=== PATIENT | female | born 1960 | race Hispanic/Latino ===

== ENCOUNTER 2022-12-17 12:39 | Emergency (ER) | payer OTHER, SELFPAY ==
--- NOTE | ~2022-12-17 | CT_ITS ---
EXAMINATION: CT abdomen pelvis w con DATE: 12/17/2022 14:08 INDICATION: Right-sided abdominal pain. No bowel movement for 3 days TECHNIQUE: Computed tomography (CT) of the abdomen and pelvis was performed with 100 CC Omnipaque 350 intravenous contrast. Automated exposure control and iterative reconstruction technique were employe d. Exam dose: 236.39 mGy-cm total exam DLP. COMPARISON: None. FINDINGS: The lung bases are clear. Heart size is normal. No pericardial or pleural effusion. The gallbladder is present. No gallbladder wall thickening or pericholecystic fluid or fat stranding. No bile duct or pancreatic duct dilatation is noted. There is an approximately 5 mm cystic lesion of the pancreatic body (image 66 series 3). Differential diagnosis includes small pseudocyst, intraductal papillary mucinous neoplasm, mucinous cystic neopla sm, serous cystadenoma, neuroendocrine tumor. 6 month follow-up CT pancreas imaging is recommended. No hepatic, splenic, and adrenal or renal space-occupying mass lesion is detected. No urinary tract c alculus or hydroureteronephrosis. The urinary bladder, uterus and adnexal areas are unremarkable. There is a prominent amount of fecal material in the rectum and colon. Normal appendix. No bowel obst ruction, bowel wall thickening, pneumatosis or intraperitoneal free air is detected. There is mild atherosclerotic calcification of the abdominal aorta, no abdominal aortic aneurysm. No intraperitoneal or retroperitoneal or pelvic mass lesion or adenopathy or ascites is noted. Diffuse idiopathic skeletal hyperostosis of the thoracic spine. Multilevel degenerative disc disease of the lumbar spine, most severe at L4-5, moderately severe at L 2-3 and L5-S1. IMPRESSIONS: 5 mm cystic lesion of the pancreatic body; differential diagnosis is given above. 6 month follow up C T pancreas imaging is recommended. Prominent amount of fecal material the rectum and colon consistent with clinical presentation of cons tipation; no bowel obstruction or free air Normal appendix Reviewed, dictated and finalized at location [facility]. IMPRESSIONS: 5 mm cystic lesion of the pancreatic body; differential diagnosis is given abov e. [address] pancreas imaging is recommended. Prominent amount of fecal material the rectum and colon consistent with clinica l presentation of constipation; no bowel obstruction or free air Normal appendix
[2022-12-17 12:40] VITALS: BP 118/72; PULSE 90; RESP 17; TEMP 36.6; O2SAT 100
[2022-12-17 13:58] LABS: Basophils Percent Auto 0.4 % (0.2-1.2); Eosinophils Absolute Auto 0.1 K/mm3 (0-0.3); Eosinophils Percent Auto 0.8 % (0-4.4); Hematocrit 39.8 % (37.0-47.0); Hemoglobin 13.2 g/dL (12.0-15.0); Immature Granulocyte Absolute 0.02 K/mm3 (0.00-0.031); Immature Granulocyte Percent A 0.3 % (0-0.5); Lymphocytes Absolute Auto 2.15 K/mm3 (0.9-3.2); Lymphocytes Percent Auto 27.1 % (18.3-44.2); Mean Corpuscular HGB Conc 33.2 g/dl (32-36); Mean Corpuscular Hemoglobin 31.1 pg (26-34); Mean Corpuscular Volume 93.6 fl (80-100); Mean Platelet Volume 11.5 fl (7.4-10.4); Monocytes Absolute Auto 0.4 K/mm3 (0.1-0.6); Monocytes Percent Auto 4.7 % (2.6-8.5); Neutrophils Absolute Auto 5.3 K/mm3 (1.3-6.7); Neutrophils Percent Auto 66.7 % (45.5-73.1); Platelet Count Result 252 k/mm3 (150-375); Red Blood Count 4.25 M/mm3 (4.2-5.4); Red Cell Distribution Width 12.7 % (11.5-14.5); White Blood Count 7.9 K/mm3 (4.5-10.0)
[2022-12-17 14:03] LABS: Estimated CRCL calculation 88 ml/min; Estimated Glomerular Filt Rate > 60
[2022-12-17 14:11] LABS: Alanine Aminotransferase 17 U/L (6-35); Albumin Level 4.2 g/dL (3.5-5.1); Alkaline Phosphatase 74 U/L (38-126); Anion Gap 5 mmol/L (8-16); Aspartate Amino Transferase 24 U/L (14-36); Bilirubin,Total 0.6 mg/dL (0.2-1.3); Blood Urea Nitrogen 14 mg/dL (7-17); Calcium 9.2 mg/dL (8.4-10.2); Carbon Dioxide 34 mmol/L (22-30); Chloride 102 mmol/L (98-107); Estimated CRCL calculation 88 ml/min; Estimated Glomerular Filt Rate > 60; Glucose 170 mg/dL (65-110); Lactic Acid Reflex 0.8 mmol/L (0.7-2.0); Lipase 63 U/L (23-300); Potassium 3.4 mmol/L (3.4-5.0); Sodium 141 mmol/L (137-145)
--- NOTE | 2022-12-17 14:32 | ED.ABDPAIN ---
HPI - Abdominal Pain General Chief Complaint: Abdominal Pain Stated Complaint: abd pain Time Seen by Provider: 12/17/22 12:45 History of Present Illness HPI narrative: 62-year-old female presented to the emergency department for evaluation of decreased bowel movements over the last 3 days and increased abdominal discomfort. Patient reports that she does have a history of abdominal pain and constipation. Related Data Allergies Allergy/AdvReac Type Severity Reaction Status Date / Time No Known Allergies Allergy Unverified 04/22/13 11:17 Review of Systems Review of Systems: All systems reviewed & are unremarkable except as noted in HPI and below Exam Narrative: APPEARANCE: Well appearing, no pain, no distress, well-nourished. HEAD: normocephalic, atraumatic. EYES: PERRLA/EOMI, conjunctivae clear. NOSE: Normal no drainage NECK: Supple. No adenopathy, no masses. RESPIRATORY: Airway patent, respirations nonlabored. Clear to auscultation bilaterally, no rales, rhonchi, wheezing. CARDIOVASCULAR: Regular rate and rhythm without murmurs rubs or gallops. ABDOMINAL: Soft, mild lower abdominal tenderness MUSCULOSKELETAL: Moves all extremities. Strength/ROM intact, No edema, No calf tenderness. NEURO: Alert. Cranial nerves II through XII intact. Grossly intact SKIN: Warm, dry. Normal Color Course Course Emergency Course: 62-year-old female presented the emergency department for evaluation of decreased bowel movement and increased abdominal discomfort. Patient is afebrile with no leukocytosis and a stable hemoglobin. Patient's CMP has no significant abnormalities. CT scan showed evidence of constipation. Patient was provided a soapsuds enema in the emergency department. Patient had significant response to the soapsuds enema and patient does feel improved. Patient was updated and results of her work-up and patient was encouraged to increase her natural fiber intake and to take MiraLAX. Vital Signs Vital signs: Vital Signs Temperature 97.8 F 12/17/22 12:40 Pulse Rate 90 12/17/22 12:40 Respiratory Rate 12/17/22 12:40 Blood Pressure 118/72 12/17/22 12:40 Pulse Oximetry 100 12/17/22 12:40 Oxygen Delivery Room Air 12/17/22 12:40 Temperature 97.8 F 12/17/22 12:40 Pulse Rate 90 12/17/22 12:40 Respiratory Rate 17 12/17/22 12:40 Blood Pressure 118/72 12/17/22 12:40 Pulse Oximetry 100 12/17/22 12:40 Oxygen Delivery Room Air 12/17/22 12:40 MDM - Abdominal Pain Differential Diagnosis Differential diagnosis: Likely abdominal pain, acute appendicitis, constipation, diverticulitis, gastroenteritis, pancreatitis and small bowel obstruction Lab Data Attestation: I reviewed the patient's lab results. 12/17/22 13:48 12/17/22 13:58 Labs: Lab Results 12/17/22 12/17/22 Range/Units 13:48 13:58 WBC 7.9 (4.5-10.0) K/mm3 RBC 4.25 (4.2-5.4) M/mm3 Hgb 13.2 (12.0-15.0) g/dL Hct 39.8 (37.0-47.0) % MCV 93.6 (80-100) fl MCH 31.1 (26-34) pg MCHC 33.2 (32-36) g/dl RDW 12.7 (11.5-14.5) % Plt Count 252 (150-375) k/mm3 MPV 11.5 H (7.4-10.4) fl Immature Gran % (Auto) 0.3 (0-0.5) % Neut % (Auto) 66.7 (45.5-73.1) % Lymph % (Auto) 27.1 (18.3-44.2) % [place] % (Auto) 4.7 (2.6-8.5) % Eos % (Auto) 0.8 (0-4.4) % Baso % (Auto) 0.4 (0.2-1.2) % Lymph # (Auto) 2.15 (0.9-3.2) K/mm3 [place] # (Auto) 0.4 (0.1-0.6) K/mm3 Eos # (Auto) 0.1 (0-0.3) K/mm3 Baso # (Auto) 0.0 (0.0-0.1) K/mm3 Abs Immat Gran (auto) 0.02 (0.00-0.031) K/mm3 Absolute Neuts (auto) 5.3 (1.3-6.7) K/mm3 Absolute Nucleated RBC 0.0 (0.0-0.012) K/mm3 Nucleated RBC % 0.0 (0.0-0.2) % Sodium 141 (137-145) mmol/L Potassium 3.4 (3.4-5.0) mmol/L Chloride 102 (98-107) mmol/L Carbon Dioxide 34 H (22-30) mmol/L Anion Gap 5 L (8-16) mmol/L BUN 14 (7-17) mg/dL Creatinine 0.40 L 0.40 L (0.7-1.0) mg/dL [place]
== END 2022-12-17 16:35 | disposition home or self-care (01) ==
PROVIDERS: Emergency Provider Emergency Medicine; PCP Internal Medicine Infectious Disease
DX: R10.9 Unspecified abdominal pain (principal); K86.2 Cyst of pancreas
CPT/HCPCS: 36415; 74177; 80053; 83605; 83690; 85025; 99284; Q9967

== ENCOUNTER 2022-12-28 12:19 | Emergency (ER) | payer OTHER, SELFPAY ==
[2022-12-28] VITALS (11 sets, daily range): BP systolic 112–164; BP diastolic 75–97; PULSE 74–98; RESP 14–18; TEMP 36.3; O2SAT 93–100
--- NOTE | ~2022-12-28 | CT_ITS ---
CT of the Abdomen and Pelvis: Indication: Abdominal pain Technique: 2.5 mm axial scans were obtained through the abdomen and pelvis following intravenous adm inistration of 100 cc of Omnipaque 350. Dose reduction technique was used on this scan by utilizing a utomated exposure control and iterative reconstruction technique. The dose-length product (DLP) was 2 18.69 mGy-cm. COMPARISON: 12/17/2022 Findings: Scans through the lung bases are unremarkable. The liver, spleen, pancreas, gallbladder, adrenals and kidneys are within normal limits. No evidence of aortic aneurysm. No lymphadenopathy. No bowel obstruction or bowel wall thickening. There is no evidence to suggest acute appendicitis. Images through the pelvis were performed. Urinary bladder unremarkable. Impression: No significant abnormalities seen. Reviewed, dictated and finalized at [facility]. Impression: No significant abnormalities seen.
--- NOTE | 2022-12-28 12:33 | ED.ABDPAIN ---
HPI - Abdominal Pain General Chief Complaint: Abdominal Pain Stated Complaint: abdominal pain Time Seen by Provider: 12/28/22 12:33 Source: patient and family Mode of arrival: ambulatory Limitations: no limitations History of Present Illness HPI narrative: 62 female came to the ED by private car with her son stating me that patient been having lower abdominal pain since last night, he denies of the patient have any fever, chills, nausea, vomiting. Patient also complaining of generalized back pain mainly lower back, radiating to right lower extremity. No recent trauma. MD elicited complaint: abdominal pain Related Data Allergies Allergy/AdvReac Type Severity Reaction Status Date / Time No Known Allergies Allergy Unverified 04/22/13 11:17 Review of Systems Review of Systems: All systems reviewed & are unremarkable except as noted in HPI and below Exam Narrative: General appearance: Well-developed, well-nourished Skin: Normal color Head: Normocephalic, nontraumatic Eyes: Clear conjunctiva ENT: Oropharynx normal, ears normal, nose normal Neck: Supple, nontender Chest and respiratory: Airway patent, no respiratory distress, no accessory muscle use Heart: Regular rate/rhythm Abdomen: Soft, nontender, no organomegaly, quiet bowel sounds Vascular: Normal peripheral pulses, normal capillary refill. Musculoskeletal: Diffuse lower back pain at the lumbar area bilaterally, no bruises, no swelling, no rash, slight limited range of motion, thoracic scoliosis Neurologic: Alert and oriented ?3, [employer] is normal as tested, no gross motor deficit Course Reevaluation(s) Reevaluation #1: Patient feeling much better after IV fluid and Dilaudid, Date: 12/28/22 Time: 14:57 Vital Signs Vital signs: Vital Signs Temperature 36.3 C L 12/28/22 12:25 Pulse Rate 98 12/28/22 12:25 Respiratory Rate 18 12/28/22 12:25 Blood Pressure 149/75 H 12/28/22 12:25 Pulse Oximetry 100 12/28/22 12:25 Oxygen Delivery Room Air 12/28/22 12:25 Temperature 36.3 C L 12/28/22 12:25 Pulse Rate 75 12/28/22 13:17 Respiratory Rate 16 12/28/22 13:17 Blood Pressure 147/83 H 12/28/22 14:01 Pulse Oximetry 96 12/28/22 14:31 Oxygen Delivery Room Air 12/28/22 12:25 MDM - Abdominal Pain MDM Narrative Medical decision making narrative: Patient presents with lower abdominal pain also generalized back pain mainly across the lumbar area, patient is physically inactive, does not have friends or family member around except her son who works daily. No recent trauma. Physical examination was consistent with diffuse tenderness across the lumbar area. Abdominal exam was benign. Differential diagnosis include urinary tract infection, intra-abdominal pathology, lower back musculoskeletal pain, arthritis, scoliosis. Work-up today include CBC, CMP, lipase, CT abdomen pelvis with IV contrast showed no acute abnormalities. Urine analysis showed 1+ leukoesterase and 10 WBC, urinary tract infection is a possibility. The plan to discharge patient on Macrobid, and naproxen for lower back musculoskeletal pain and a possible urinary tract infection. Differential Diagnosis Differential diagnosis: Likely abdominal pain, acute appendicitis, calculus of kidney, constipation and diverticulitis Medical Records Attestation: I reviewed the patient's medical records. Lab Data Attestation: I reviewed the patient's lab results. 12/28/22 12:37 12/28/22 12:48 Labs: Lab Results 12/28/22 12/28/22 12/28/22 Range/Units 12:37 12:48 13:16 WBC 7.7 (4.5-10.0) K/mm3 RBC 4.00 L (4.2-5.4) M/mm3 Hgb 12.4 (12.0-15.0) g/dL Hct 37.5
[2022-12-28 12:43] LABS: Basophils Percent Auto 0.4 % (0.2-1.2); Eosinophils Absolute Auto 0.1 K/mm3 (0-0.3); Eosinophils Percent Auto 0.9 % (0-4.4); Hematocrit 37.5 % (37.0-47.0); Hemoglobin 12.4 g/dL (12.0-15.0); Immature Granulocyte Absolute 0.02 K/mm3 (0.00-0.031); Immature Granulocyte Percent A 0.3 % (0-0.5); Lymphocytes Absolute Auto 2.49 K/mm3 (0.9-3.2); Lymphocytes Percent Auto 32.3 % (18.3-44.2); Mean Corpuscular HGB Conc 33.1 g/dl (32-36); Mean Corpuscular Volume 93.8 fl (80-100); Monocytes Absolute Auto 0.4 K/mm3 (0.1-0.6); Monocytes Percent Auto 5.2 % (2.6-8.5); Neutrophils Absolute Auto 4.7 K/mm3 (1.3-6.7); Neutrophils Percent Auto 60.9 % (45.5-73.1); Platelet Count Result 232 k/mm3 (150-375); Red Cell Distribution Width 12.4 % (11.5-14.5); White Blood Count 7.7 K/mm3 (4.5-10.0)
[2022-12-28 12:51] LABS: Estimated CRCL calculation 118 ml/min; Estimated Glomerular Filt Rate > 60
[2022-12-28 12:54] LABS: Alanine Aminotransferase 20 U/L (6-35); Albumin Level 4.1 g/dL (3.5-5.1); Alkaline Phosphatase 79 U/L (38-126); Anion Gap 5 mmol/L (8-16); Aspartate Amino Transferase 23 U/L (14-36); Bilirubin,Total 0.4 mg/dL (0.2-1.3); Blood Urea Nitrogen 6 mg/dL (7-17); Calcium 9.3 mg/dL (8.4-10.2); Carbon Dioxide 35 mmol/L (22-30); Chloride 99 mmol/L (98-107); Estimated CRCL calculation 118 ml/min; Estimated Glomerular Filt Rate > 60; Glucose 175 mg/dL (65-110); Lipase 48 U/L (23-300); Potassium 3.9 mmol/L (3.4-5.0); Sodium 139 mmol/L (137-145)
[2022-12-28 13:35] LABS: Appearance Urine Clear (Clear); Bacteria Urine None Seen /hpf; Bilirubin Urine Negative (Negative); Blood Urine Negative (Negative); Color Urine Yellow (Yellow); Glucose Urine UA Negative (Negative); Ketones Urine Negative (Negative); Leukocyte Esterase Ur 1+ LEU/UL (Negative); Nitrate Urine Negative (Negative); Non Pathogenic Casts 0-2; Protein Urine Negative (Negative); RBC Urine 0-2 /hpf (0-2); Specific Grav Ur 1.028 (1.001-1.035); Squamous Epithelial Cell Urine None seen /hpf (Few); Urobilinogen Urine 0.2 mg/dL (<2.0)
[2022-12-28 13:36] LABS: Lactic Acid Reflex 1.1 mmol/L (0.7-2.0)
[2022-12-28 13:42] LABS: Add Urine Microscopic? YES
[2022-12-28] MEDS: HYDROmorphone HCL INJ (*CRX) 1 MG/ML SYR 0.5 MG IV PUSH (14:02)
[2022-12-28] MEDS: ONDANSETRON INJ 4 MG/2 ML VIAL IV PUSH (14:02)
== END 2022-12-28 15:00 | disposition home or self-care (01) ==
PROVIDERS: Emergency Provider Emergency Medicine; PCP Internal Medicine Infectious Disease
DX: N30.01 Acute cystitis with hematuria (principal); R10.30 Lower abdominal pain, unspecified
CPT/HCPCS: 36415; 74177; 80053; 81001; 83605; 83690; 85025; 87086; 96374; 96375; 99284; J1170; J2405; Q9967